=== PATIENT | female | born 1975 | race African-American/Black ===

== ENCOUNTER → 2021-06-10 | Day surgery (SDC) | payer BC, OTHER | END | disposition home or self-care (01) | LOC: JRADIR 10:51 | PROVIDERS: ATTEND Otolaryngology | PROC: 0G9K3ZX Drainage of Thyroid Gland, Percutaneous Approach, Diagnostic (ICD-10-PCS; principal; 2021-06-10) | DX: E04.1 Nontoxic single thyroid nodule (principal) | CPT/HCPCS: 10005; 76942; 88173; 88305-TC ==

== ENCOUNTER 2022-02-01 09:47 | Day surgery (SDC) | payer BC, OTHER ==
[2022-01-31 11:42] VITALS: BMI 30.2
[2022-02-01 12:43] VITALS: TEMP 97
[2022-02-01 12:45] VITALS: BP 115/56; PULSE 67
== END 2022-02-01 13:01 | disposition home or self-care (01) ==
LOC: FASU-ENDO 09:47
PROVIDERS: ATTEND Internal Medicine Gastroenterology
PROC: 0DJD8ZZ Inspection of Lower Intestinal Tract, Via Natural or Artificial Opening Endoscopic (ICD-10-PCS; principal; 2022-02-01 11:47)
DX: Z12.11 Encounter for screening for malignant neoplasm of colon (principal); K64.1 Second degree hemorrhoids
CPT/HCPCS: 81025

== ENCOUNTER 2022-02-24 10:54 | Emergency (ER) | payer BC, OTHER ==
[2022-02-24 11:20] VITALS: BP 129/86; PULSE 71; TEMP 98.4; BMI 29.2
[2022-02-24] MEDS ORDERED: IBUPROFEN 600 MG TABLET (FP) PO ONE ×2 (11:40→11:52)
[2022-02-24 12:07] LABS: HCG,QUALITATIVE URINE Negative
[2022-02-24 12:27] LABS: EPITHELIAL CELLS MODERATE /hpf
== END 2022-02-24 14:52 | disposition home or self-care (01) ==
LOC: FER 10:54
DX: R10.30 Lower abdominal pain, unspecified (principal)
CPT/HCPCS: 74176-TC; 76830-TC; 81003; 81015; 84703; 87086; 99285-25